=== PATIENT | male | born 1980 | race Caucasian/White ===

== ENCOUNTER 2017-08-27 22:45 | Emergency (ER) | payer SELFPAY ==
--- NOTE | 2017-08-27 23:39 | ERPHSYRPT ---
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 He states he has been worked up for this by his physician in [place] he states he had x-rays of the shoulder and the neck which did not show anything. He states that he continues to have the pain in the shoulder and the pain in his arm. He has no new injuries. He states that he is not on any medications he states that he lost his job before he could be put on medications by his family doctor. Past medical history includes diabetes, hyperlipidemia, high blood pressure, Crohn's disease, bipolar disorder patient has had groin abscesses in the past. Past surgical history includes 3 right knee surgery he's had his right thumb sewn back on he's had 6 surgeries to his groin. Timing/Duration: other (symptoms for 2-3 months) Severity: moderate Modifying Factors: Improves With: nothing Associated Symptoms: No nausea, No vomiting, No abdominal pain, No shortness of breath, No heartburn, No diaphoresis, No cough, No chills, No chest pain, No fever, No headaches, No loss of appetite, No malaise, No rash Allergies/Adverse Reactions: Sulfa (Sulfonamide Antibiotics) Allergy (Intermediate, Verified 02/13/14 15:17) Vomiting Home Medications: Lisinopril/Hydrochlorothiazide [Lisinopril-Hctz 20-25 mg Tab] 1 tab PO DAILY [History] Atorvastatin Calcium [Lipitor] 10 mg PO HS 12/19/13 [History] Bupropion HCl [Bupropion Xl] 1 tab PO DAILY 10/15/14 [History] Clonidine HCl 0.1 mg [Catapres 0.1 MG] 0.5 tab PO UD 10/15/14 [History] Clonidine HCl 0.1 mg [Catapres 0.1 MG] 1 tab PO HS 10/15/14 [History] Dicyclomine HCl 20 mg [Bentyl 20 mg] 20 mg PO Q6HPRN PRN 10/15/14 [History ] Hydrocodone Bit/Acetaminophen [Hydrocodon-Acetaminoph 7.5-325] 1 tab PO Q8HPRN PRN 10/15/14 [History] Hydroxyzine Pamoate [Vistaril] 25 mg PO TID PRN PRN 10/15/14 [History] Lamotrigine 100 mg [lamICTAL 100MG TABLET] 100 mg PO BID 10/15/14 [History ] Metformin HCl [Metformin HCl ER] 750 mg PO BID 10/15/14 [History] Trazodone HCl [Desyrel] 300 mg PO HS 10/15/14 [History] Hx Tetanus, Diphtheria Vaccination/Date Given: No (>7 yrs) Hx Influenza Vaccination/Date Given: Yes Hx Pneumococcal Vaccination/Date Given: Yes (2012) Immunizations Up to Date: Yes - Review of Systems Constitutional: No Fever, No Chills Eyes: No Symptoms Ears, Nose, & Throat: No Symptoms Respiratory: No Cough, No Dyspnea Cardiac: No Chest Pain, No Edema, No Syncope Abdominal/Gastrointestinal: No Abdominal Pain, No Nausea, No Vomiting, No Diarrhea Genitourinary Symptoms: No Dysuria Musculoskeletal: Other (pain in right shoulder radiating down his arm) Skin: No Symptoms, No Rash Neurological: Parasthesia (paresthesias to right fingers) Psychological: No Symptoms Endocrine: No Symptoms All Other Systems: Reviewed and Negative - Past Medical History Pertinent Past Medical History: Yes Neurological History: No Pertinent History ENT History: No Pertinent History Cardiac History: High Cholesterol, Hypertension Respiratory History: No Pertinent History Endocrine Medical History: No Pertinent History, Diabetes Type II Musculoskeletal History: No Pertinent History GI Medical History: Crohns Disease History: No Pertinent History Psycho-Social History: Bipolar, Depression, Anxiety, Panic Disorder, Other Male Reproductive Disorders: No Pertinent History Other Medical History: sleep deprivation. - Past Surgical History Past Surgical History: Yes Neuro Surgical History: No Pertinent History Cardiac: No Pertinent History Respiratory: No Pertinent History Gastrointestinal: No Pertinent History Genitourinary: No Pertinent History Musculoskeletal: Orthopedic Surgery Male Surgical History: Other Other Surgical History: 3 RT KNEE SURGERIES, RT THUMB SEWED BACK ON, 7 SURGERIES TO GROIN FOR I&D. - Social History Smoking Status: Current every day smoker How long have you smoked: 22 Exposure to second hand smoke: No Drug Use: marijuana Patient Lives Alone: Yes - Nursing Vital Signs Nursing Vital Signs: Initial Vital Signs Temperature 98.8 F 08/27/17 23:01 Pulse Rate 84 08/27/17 23:01 Blood Pressure 151/101 08/27/17 23:01 O2 Sat by Pulse Oximetry 98 08/27/17 23:01 Pain Scale Pain Intensity 8 - Physical Exam General Appearance: mild distress Eye Exam: PERRL/EOMI, eyes nml inspection Ears, Nose, Throat Exam: normal ENT inspection, TMs normal, pharynx normal, moist mucous membranes Neck Exam: normal inspection, non-tender, supple, full range of motion Respiratory Exam: normal breath sounds, lungs clear, No respiratory distress Cardiovascular Exam: regular rate/rhythm, normal heart sounds, normal peripheral pulses Gastrointestinal/Abdomen Exam: soft, normal bowel sounds, No tenderness, No mass Back Exam: normal inspection, normal range of motion, No CVA tenderness, No vertebral tenderness Extremity Exam: other (patient complains of pain with movement of his right upper extremity, he has full range of motion to both upper extremities, ggood capillary refill to all fingers sensation intact to all fingersPatient with tenderness with palpation to his right shoulder ) Neurologic Exam: alert, oriented x 3, cooperative, psychology tech II-XII nml as tested, normal mood/affect, nml cerebellar function, nml station & gait, sensation nml, No motor deficits Skin Exam: normal color, warm, dry, No rash Lymphatic Exam: No adenopathy SpO2 Interpretation: normal (98%) SpO2: 98 Oxygen Delivery: Room Air - Course Nursing assessment & vital signs reviewed: No - Progress Progress: improved Progress Note: 08/27/17 23:40 This is a 37-year-old white male with history of chronic shoulder pain for 2 months He states that he has seen a physician down in [place] secondary to this, he states he had x-rays of his neck and shoulder he states that these really did not reveal anything. He states that he was going to be referred by his physician down in [place] to a specialist but he lost his job. He states he continues to have pain in his right shoulder and right arm worse with moving of the arm. On physical examination patient appears to have full range of motion to his right shoulder and arm and elbow and hand and wrist however he does this with pain. Underwriting Technician are intact and symmetrical finger to nose is intact bilaterally however patient appears to be slow at performing finger to nose. Patient's radial and ulnar pulses are intact 2 over 4,. Sensation is intact to his fingers however patient states he feels numbness. I have offered to obtain an x-ray of the patient's shoulder he really doesn't want when he states he just had one along with his x-ray of his neck. I've asked the patient what he would like me to do for him he states he would like to be able to put the arm in a position of comfort. He also states he does not get his insurance until September 07. I have told the patient that I can treat him for 48 hours and he needs to follow -up with her family doctor of his choice I have recommended that he possibly could follow-up with [facility] clinic in [place]. He states that he would prefer to go back down in [place] . I will go ahead and provide the patient with a sling Will give patient one Eros tablet here provide a prescription for 10 Eros tablets he is to place ice on his right shoulder 24-48 hours. And follow-up with his family doctor. He can return for acute distress or for severe symptoms. 08/27/17 23:45 Patient also complains of paresthesia to his right fingers he states he has had this for several months as well he has been seen by his family secondary to this. Patient has full range of motion to his fingers and sensation appears to be intact to his fingers at this time. - Departure Time of Disposition: 23:43 Departure Disposition: Home Clinical Impression: Chronic right shoulder pain, exacerbation of right shoulder pain, paresthesia right fingers Condition: Fair Critical Care Time: No Additional Instructions: Return home. Ice to right shoulder 24-48 hours. Use sling 48-72 hours. Follow-up with your family if symptoms worsen over 24-48 hours or persist longer than 72 hours. Return for acute distress or for severe symptoms. Prescriptions: Hydrocodone/Acetaminophen [Eros 5-325 Tablet] 1 tab PO Q4-6HPRN PRN #10 tablet MDD 4 tablets PRN Reason: pain
[2017-08-27] MEDS ORDERED: NORCO 5/325 MG PO ONE (23:49)
[2017-08-27] MEDS ORDERED: NORCO 5/325 MG ONE (23:53)
[2017-08-28 00:09] VITALS: BP 142/85; PULSE 78; O2SAT 97
== END 2017-08-28 00:13 | disposition home or self-care (01) ==
LOC: ED 22:45
DX: M25.511 Pain in right shoulder (principal); Z79.899 Other long term (current) drug therapy; E11.9 Type 2 diabetes mellitus without complications; R20.2 Paresthesia of skin; G89.29 Other chronic pain
CPT/HCPCS: 99282; 99283; A9270-GY

== ENCOUNTER 2018-09-11 14:10 | Emergency (ER) | payer OTHER ==
[2018-09-11 14:46] VITALS: O2SAT 98
--- NOTE | 2018-09-11 15:19 | ERPHSYRPT ---
- History of Present Illness Time Seen by Provider: 09/11/18 15:13 Source: patient Exam Limitations: no limitations Patient Subjective Stated Complaint: has injections into neck for pinched nerve yesterday by Dr Bedolla at [facility]. states was sent to the hospital for an emergency MRI. states pain in neck is worse than before his injections. states muscles pull and wont release. states stabbing pain in the right arm. denies injury. Triage Nursing Assessment: alert and anxious and irritated. states pain and buring to neck and both arms that is increased in the right arm.. no known injury. had injections yesterday and the pain s increased today. states feels like hands burning. 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 noted left head bent. Physician History: 38-year-old white male with history of diabetes type 1, hypercholesterolemia, high blood pressure, Crohn's disease, bipolar depression, anxiety, panic disorder, sleep deprivation Patient arrives with complaint of pain radiating down to both hands he states he has pain in his neck were ordered on this patient apparently had been seen yesterday by Dr. Bedolla at [facility] pain control center He had received an injection in his neck he apparently had been referred to this hospital to have an MRI obtained which has been done He apparently had been told that he needed to come to the ER for pain control Upon arrival patient seems to be somewhat angry he is able to point with his left hand where his pain is he is able to fabric designer off his blood pressure cuff from his left arm with his right arm he seems to have somewhat of a week and fabric designer on the right however it is questionable whether this is functional he had no problems grabbing his cough and pulling it off/ He is uncooperative with finger to nose he stretches both arms out to the side when asked him to do this. Patient has full range of motion to all other extremities. Past medical history includes diabetes type 1, hypercholesterolemia, high blood pressure, Crohn's disease, bipolar depression, anxiety, panic disorder, sleep deprivation Past surgical history includes orthopedic surgery, 3 surgeries on the right knee , groin surgery right thumb sewn back on. . Timing/Duration: yesterday Severity: moderate Modifying Factors: Improves With: other (received pain injection yesterday and neck) Associated Symptoms: other (shooting pains both hands neck pain), No nausea, No vomiting, No abdominal pain, No shortness of breath, No heartburn, No diaphoresis, No cough, No chills, No chest pain, No fever, No headaches, No loss of appetite, No malaise, No rash, No syncope, No seizure, No weakness Allergies/Adverse Reactions: Sulfa (Sulfonamide Antibiotics) Allergy (Intermediate, Verified 09/11/18 14:50) Vomiting Home Medications: Lisinopril/Hydrochlorothiazide [Lisinopril-Hctz 20-25 mg Tab] 1 tab PO DAILY [History] Atorvastatin Calcium [Lipitor] 10 mg PO HS 12/19/13 [History] Clonidine HCl 0.1 mg [Catapres 0.1 MG] 0.5 tab PO UD 10/15/14 [History] Clonidine HCl 0.1 mg [Catapres 0.1 MG] 1 tab PO HS 10/15/14 [History] Dicyclomine HCl 20 mg [Bentyl 20 mg] 20 mg PO Q6HPRN PRN 10/15/14 [History ] Hydrocodone Bit/Acetaminophen [Hydrocodon-Acetaminoph 7.5-325] 1 tab PO Q8HPRN PRN 10/15/14 [History] Hydroxyzine Pamoate [Vistaril] 25 mg PO TID PRN PRN 10/15/14 [History] Lamotrigine 100 mg [lamICTAL 100MG TABLET] 100 mg PO BID 10/15/14 [History ] Metformin HCl [Metformin HCl ER] 750 mg PO BID 10/15/14 [History] Trazodone HCl [Desyrel] 300 mg PO HS 10/15/14 [History] buPROPion HCl [Bupropion Xl] 1 tab PO DAILY 10/15/14 [History] Hx Tetanus, Diphtheria Vaccination/Date Given: No (>7 yrs) Hx Influenza Vaccination/Date Given: Yes Hx Pneumococcal Vaccination/Date Given: Yes (2012) Immunizations Up to Date: Yes - Review of Systems Constitutional: No Fever, No Chills Eyes: No Symptoms Ears, Nose, & Throat: No Symptoms Respiratory: No Cough, No Dyspnea Cardiac: No Chest Pain, No Edema, No Syncope Abdominal/Gastrointestinal: No Abdominal Pain, No Nausea, No Vomiting, No Diarrhea Genitourinary Symptoms: No Dysuria Musculoskeletal: Neck Pain, Other (shooting pains both hand), No Back Pain Skin: No Symptoms, No Rash Neurological: Other (shooting pains both hands.), No Dizziness, No Focal Weakness, No Gait Changes, No Headache, No Irritability, No Lethargy, No Paralysis, No Parasthesia, No Seizure, No Sensory Changes, No Speech Changes, No Tics, No Tremors, No Vertigo Psychological: No Symptoms Endocrine: No Symptoms All Other Systems: Reviewed and Negative - Past Medical History Pertinent Past Medical History: Yes Neurological History: No Pertinent History ENT History: No Pertinent History Cardiac History: High Cholesterol, Hypertension Respiratory History: No Pertinent History Endocrine Medical History: No Pertinent History, Diabetes Type II Musculoskeletal History: No Pertinent History GI Medical History: Crohns Disease History: No Pertinent History Psycho-Social History: Bipolar, Depression, Anxiety, Panic Disorder, Other Male Reproductive Disorders: No Pertinent History Other Medical History: sleep deprivation. - Past Surgical History Past Surgical History: Yes Neuro Surgical History: No Pertinent History Cardiac: No Pertinent History Respiratory: No Pertinent History Gastrointestinal: No Pertinent History Genitourinary: No Pertinent History Musculoskeletal: Orthopedic Surgery Male Surgical History: Other Other Surgical History: 3 RT KNEE SURGERIES, RT THUMB SEWED BACK ON, 7 SURGERIES TO GROIN FOR I&D. - Social History Smoking Status: Current every day smoker How long have you smoked: 22 Exposure to second hand smoke: No Drug Use: marijuana Patient Lives Alone: No - Nursing Vital Signs Nursing Vital Signs: Initial Vital Signs Temperature 98 F 09/11/18 14:35 Pulse Rate 80 09/11/18 14:35 Respiratory Rate 18 09/11/18 14:35 Blood Pressure 109/70 09/11/18 14:35 O2 Sat by Pulse Oximetry 98 09/11/18 14:35 Pain Scale Pain Intensity 10 - Physical Exam General Appearance: mild distress, alert, other (well-developed well-nourished white male appears to be very angry) Eye Exam: PERRL/EOMI, eyes nml inspection Ears, Nose, Throat Exam: normal ENT inspection, TMs normal, pharynx normal, moist mucous membranes Neck Exam: normal inspection, non-tender, supple, full range of motion Respiratory Exam: normal breath sounds, lungs clear, No respiratory distress Cardiovascular Exam: regular rate/rhythm, normal heart sounds, normal peripheral pulses, capillary refill <2 sec Gastrointestinal/Abdomen Exam: soft, normal bowel sounds, No tenderness, No mass Back Exam: normal inspection, normal range of motion, No CVA tenderness, No vertebral tenderness Extremity Exam: normal inspection, normal range of motion, pelvis stable Neurologic Exam: alert, oriented x 3, cooperative, vacuum cleaner assembler II-XII nml as tested, normal mood/affect, nml cerebellar function, nml station & gait, sensation nml, No motor deficits Skin Exam: normal color, warm, dry, No rash SpO2 Interpretation: normal (98%) SpO2: 98 - Course Nursing assessment & vital signs reviewed: Yes - Progress Progress: improved (all) Progress Note: 09/11/18 15:19 38-year-old white male with history of her neck pain apparently had received an injection in his neck from [facility] yesterday. He apparently stated that he increasing pain today in his neck radiating to both hands. He had an MRI done here in this hospital today. MRI of the neck is remarkable for minimal/mild multilevel degenerative disc disease detailed level by level. Negative disc herniation or spinal she canal stenosis. Negative contrast exam. Patient is quite angry on interview. He is somewhat uncooperative. He appears to have full range of motion to all extremities HEENT within normal limits neck pain he states is tender but he has full range of motion. Extremities full range of motion patient is uncooperative with neurologic exam but he is able to fabric designer off his blood pressure cuff from his left forearm with his right hand. He is able to pinpoint where his neck is bothering him was his left hand. He has full range of motion he is able to use his cell phone. He has full range of motion to all extremities. Ears TMs finley intact bilaterally. Nose is clear. Throat is clear. Neck is supple. Lungs are clear. Heart regular rate and rhythm without murmur. Abdomen soft nontender nondistended positive bowel sounds. Extremities full range of motion pulse equal symmetrical 2 over 4. Neuro cranial nerves II through XII are intact DTRs symmetrical 2 over 4 Fenton Coma Scale 15 patient does exhibit somewhat weak fabric designer on the right with a asking him to squeeze my fingers however he is able to grasp a blood pressure cuff and repeat off with the same hand. Impression neck pain bilateral hand pain. History of recent injections secondary to pain at pain control center. Plan Accu-Chek has been obtained from this patient is noted to be to 40. Will go ahead and discuss with the patient's pain control physician. 09/11/18 15:48 I discussed the patient's case with nurse eda Escalona at [facility]. They do not feel that patient is having acute MRI changes. Patient is angry Conry talking to him he states he's been dealing with this for a year and he expected to have his treatment having him feel much better. In discussion with nurse practitioner Pola she feels that the medications are anoverlying his nurse and this will go away in a day or 2. Patient does have a normal neurologic exam at this time. Will go ahead and give patient Toradol 60 mg IM. Will write for a few C[place]on tablets inspect has been queried patient is not taking these for a while and they do not show up on inspect. Nurse practitioner Pola recommends that the patient follow-up with Dr. Palacio the patient's neurologist who had sent the patient to the [facility]. - Departure Departure Disposition: Home Clinical Impression: Neck pain, Bilateral hand pain, Chronic pain syndrome Condition: Fair Critical Care Time: No Referrals: RADHA DOSHI MD [Primary Care Provider] - Instructions: Chronic Pain (DC) Additional Instructions: Return home. Follow-up with Dr. Palacio your neurologist. Follow-up with [facility]. Cresson as prescribed. Return for acute distress or for severe symptoms. Prescriptions: Hydrocodone/APAP 5-325 Tab^^^ [C[place]on 5-325 Tablet^^^] 1 tab PO Q6HPRN PRN #10 tablet MDD 6 PRN Reason: neck and hand pain
[2018-09-11 15:51] VITALS: BP 125/72; PULSE 78
[2018-09-11] MEDS ORDERED: TORAdol 30 mg Injection IM ONE (15:59)
[2018-09-11] MEDS ORDERED: TORAdol 30 mg Injection ONE (16:02)
== END 2018-09-11 16:19 | disposition home or self-care (01) ==
LOC: ED 14:10
DX: M54.2 Cervicalgia (principal); M79.642 Pain in left hand; M79.641 Pain in right hand; G89.4 Chronic pain syndrome; I10 Essential (primary) hypertension; E11.9 Type 2 diabetes mellitus without complications; K50.90 Crohn's disease, unspecified, without complications; E78.00 Pure hypercholesterolemia, unspecified; F41.9 Anxiety disorder, unspecified; F31.9 Bipolar disorder, unspecified; Z72.820 Sleep deprivation; E10.9 Type 1 diabetes mellitus without complications; Z79.4 Long term (current) use of insulin; Z79.899 Other long term (current) drug therapy
CPT/HCPCS: 82962; 96372; 99284; J1885

== ENCOUNTER 2021-12-28 06:35 | Emergency (ER) | payer OTHER ==
[2021-12-28] MEDS ORDERED: Zofran 4 MG/2 ML VIAL IV ONE (07:00)
[2021-12-28] MEDS ORDERED: Ativan 2 MG/1 ML VIAL IV ONE (07:00)
[2021-12-28] MEDS ORDERED: Sodium Chloride 0.9% 1000 ML 1,000 ML IV STA (07:00)
--- NOTE | 2021-12-28 07:11 | ERPHSYRPT ---
- History of Present Illness Source: patient, EMS, police Exam Limitations: clinical condition Patient Subjective Stated Complaint: per ems, pt had 3 seizures this morning. pt responds to painful stimuli upon arrival. Triage Nursing Assessment: pt responds to painful stimluli upon arrival to er. at this time, pt responding to questions and answers approp. pt follows comm ands. respirations nonlabored with lungs cta. pupils equal and reactive bilat upper and lower ext strength equal and wnl. Timing/Duration: today, sudden, improved Severity: moderate Baseline/Normal Cognition: alert oriented x 3 Current Cognition: alert oriented x 3 Associated Symptoms: seizures Hx Tetanus, Diphtheria Vaccination/Date Given: Yes Hx Influenza Vaccination/Date Given: No Hx Pneumococcal Vaccination/Date Given: No Immunizations Up to Date: Yes <DAISY MARIA - Last Filed: 12/28/21 07:08> <TERESA ROBLES - Last Filed: 12/28/21 08:32> - History of Present Illness Time Seen by Provider: 12/28/21 06:45 Physician History: 41 years old male with history of seizure disorder, possible drug use currently in the senior care is brought in the ER after he had a 3 [id number] seizure-like activities prior to arrival. Patient is sleepy on presentation but arousable to verbal commands and answers questions appropriately. Patient denies numbness tingling or focal weakness but complaining of some headache. No chest pain palpitations or shortness of breath. Does take Lamictal which she has last night. Not a very good historian and history is limited. (DAISY MARIA) Allergies/Adverse Reactions: Sulfa (Sulfonamide Antibiotics) Adverse Reaction (Intermediate, Verified 12/28/21 06:59) Vomiting Home Medications: Lisinopril/Hydrochlorothiazide [Lisinopril-Hctz 20-25 mg Tab] 1 tab PO DAILY 09/27/13 [History] Atorvastatin Calcium [Lipitor] 20 mg PO HS 12/19/13 [History] Lamotrigine 100 mg [lamICTAL 100MG TABLET] 150 mg PO BID 10/15/14 [History] Metformin HCl [Metformin HCl ER] 500 mg PO BID 10/15/14 [History] Trazodone HCl [Desyrel] 150 mg PO HS 10/15/14 [History] Gabapentin [Neurontin ] 300 mg PO TID 12/28/21 [History] Travel Risk - International Travel Have you traveled outside of the country in past 3 weeks: No - Coronavirus Screening Are you exhibiting any of the following symptoms?: No Close contact with a COVID-19 positive Pt in past 14-21 Days: No - Vaccine Status Have you recieved a Covid-19 vaccination: Yes Coupon Clerk: Unknown - Vaccination Dates Dates if Unknown: 2020 <DAISY MARIA - Last Filed: 12/28/21 07:08> - Review of Systems All Other Systems: Unable due to condition <DAISY MARIA - Last Filed: 12/28/21 07:08> - Past Medical History Pertinent Past Medical History: Yes Neurological History: Seizures ENT History: No Pertinent History Cardiac History: High Cholesterol, Hypertension Respiratory History: No Pertinent History Endocrine Medical History: No Pertinent History, Diabetes Type II Musculoskeletal History: No Pertinent History GI Medical History: Crohns Disease History: No Pertinent History Psycho-Social History: Bipolar, Depression, Anxiety, Panic Disorder, Other Male Reproductive Disorders: No Pertinent History Other Medical History: . - Past Surgical History Past Surgical History: Yes Neuro Surgical History: No Pertinent History Cardiac: No Pertinent History Respiratory: No Pertinent History Gastrointestinal: No Pertinent History Genitourinary: No Pertinent History Musculoskeletal: Orthopedic Surgery Male Surgical History: Other Other Surgical History: 3 RT KNEE SURGERIES, RT THUMB SEWED BACK ON, 7 SURGERIES TO GROIN FOR I&D. - Social History Smoking Status: Current every day smoker How long have you smoked: 22 Exposure to second hand smoke: No Drug Use: marijuana, methamphetamines Patient Lives Alone: No <DAISY MARIA - Last Filed: 12/28/21 07:08> - Rodrigo Coma Scale Best Eye Response (Rodrigo): (3) open to voice Best Verbal Response (Rodrigo): (5) oriented Best Motor Response (Rodrigo): (6) obeys commands [place] Total: 14 - Physical Exam General Appearance: no apparent distress Eye Exam: bilateral eye: normal inspection, PERRL, EOMI Ears, Nose, Throat Exam: normal ENT inspection, TMs normal, pharynx normal, moist mucous membranes Neck Exam: normal inspection, non-tender, supple, full range of motion Respiratory: normal breath sounds, lungs clear Cardiovascular: regular rate/rhythm, normal heart sounds Gastrointestinal: soft, normal bowel sounds, No tenderness Back Exam: normal inspection, normal range of motion Extremity Exam: normal inspection, normal range of motion Mental Status: oriented x 3, cooperative baker pie Exam: normal hearing, normal speech, PERRL Motor/Sensory: no motor deficit, no sensory deficit, negative Babinski's sign DTR: bicep (R): 2+, bicep (L): 2+, knee (R): 2+, knee (L): 2+ Skin Exam: normal color SpO2 Interpretation: normal SpO2: 95 O2 Delivery: Room Air <DAISY MARIA - Last Filed: 12/28/21 07:08> - Nursing Vital Signs Nursing Vital Signs: Initial Vital Signs Temperature 98.0 F 12/28/21 06:43 Pulse Rate 94 H 12/28/21 06:43 Respiratory Rate 16 12/28/21 06:43 Blood Pressure 155/105 12/28/21 06:43 O2 Sat by Pulse Oximetry 95 12/28/21 06:43 Pain Scale Pain Intensity 0 Ordered Tests: Active Orders 24 hr Category Date Time Status Imaging Technologist STAT Care 12/28/21 07:01 Active EKG-ER Only STAT Care 12/28/21 07:00 Active IV Insertion STAT Care 12/28/21 07:00 Active NPO (ED) STAT Care 12/28/21 07:00 Active HEAD WITHOUT CONTRAST [CT] Stat Exams 12/28/21 07:19 Taken CBC W DIFF Stat Lab 12/28/21 07:18 Completed CMP Stat Lab 12/28/21 07:18 Completed Lactic Acid Stat Lab 12/28/21 06:53 Completed UA W/RFX CULTURE Stat Lab 12/28/21 07:05 Completed Urine Triage Profile Stat Lab 12/28/21 07:04 Completed Medication Summary Discontinued Medications Generic Name Dose Route Start Last Admin Trade Name Freq PRN Reason Stop Dose Admin Sodium Chloride 1,000 mls @ 999 mls/hr 12/28/21 07:00 12/28/21 07:18 Sodium Chloride 0.9% 1000 Ml IV 12/28/21 08:00 999 mls/hr .Q1H1M STA Administration Sodium Chloride Confirm 12/28/21 07:17 Sodium Chloride 0.9% 1000 Ml Administered 12/28/21 07:18 Dose 1,000 mls @ ud .ROUTE .STK-MED ONE Lorazepam 1 mg 12/28/21 07:00 12/28/21 07:18 Lorazepam 2 Mg/1 Ml 2 Mg Vial IV 12/28/21 07:01 1 mg STAT ONE Administration Lorazepam Confirm 12/28/21 07:17 Lorazepam 2 Mg/1 Ml 2 Mg Vial Administered 12/28/21 07:18 Dose 2 mg .ROUTE .STK-MED ONE Ondansetron HCl 4 mg 12/28/21 07:00 12/28/21 07:18 Ondansetron Hcl 4 Mg/2 Ml Vial IV 12/28/21 07:01 4 mg STAT ONE Administration Ondansetron HCl Confirm 12/28/21 07:16 Ondansetron Hcl 4 Mg/2 Ml Vial Administered 12/28/21 07:17 Dose 4 mg .ROUTE .STK-MED ONE Lab/Rad Data: Laboratory Result Diagrams 12/28/21 07:18 12/28/21 07:18 Laboratory Results 12/28/21 12/28/21 12/28/21 Range/Units 07:18 07:18 07:05 WBC 8.2 (4.0-10.5) x10^3/uL RBC 6.36 H (4.1-5.6) x10^6/uL Hgb 17.0 (12.5-18.0) g/dL Hct 53.1 H (42-50) % MCV 83.5 (78-100) fL MCH 26.7 (26-32) pg MCHC 32.0 (32-36) g/dL RDW 14.9 H (11.5-14.0) % Plt Count 246 (150-450) x10^3/uL MPV 10.5 (7.5-11.0) fL Gran % 58.6 (36.0-66.0) % Immature Gran % (Auto) 0.4 (0.00-0.4) % Nucleat RBC Rel Count 0.0 (0.00-0.1) % Eos # (Auto) 0.14 (0-0.5) x10^3/uL Immature Gran # (Auto) 0.03 (0.00-0.03) x10^3u/L Absolute Lymphs (auto) 2.32 (1.0-4.6) x10^3/uL Absolute Monos (auto) 0.81 (0.0-1.3) x10^3/uL Absolute Nucleated RBC 0.00 (0.00-0.01) x10^3u/L Lymphocytes % 28.4 (24.0-44.0) % Monocytes % 9.9 (0.0-12.0) % Eosinophils % 1.7 (0.00-5.0) % Basophils % 1.0 (0.0-0.4) % Absolute Granulocytes 4.80 (1.4-6.9) x10^3/uL Basophils # 0.08 (0-0.4) x10^3/uL Sodium 137 (137-145) mmol/L Potassium 4.0 (3.5-5.1) mmol/L Chloride 103 (98-107) mmol/L Carbon Dioxide 24 (22-30) mmol/L Anion Gap 14.0 (5-15) MEQ/L BUN 16 (9-20) mg/dL Creatinine 0.88 (0.66-1.25) mg/dL Estimated GFR > 60.0 ML/MIN Glucose 99 (74-106) mg/dL Lactic Acid (0.4-2.0) Calcium 9.4 (8.4-10.2) mg/dL Total Bilirubin 0.80 (0.2-1.3) mg/dL AST 29 (17-59) U/L ALT 26 (0-50) U/L Alkaline Phosphatase 78 (38-126) U/L Serum Total Protein 6.9 (6.3-8.2) g/dL Albumin 3.9 (3.5-5.0) g/dL Urinalys Dipstick Clnc MAIN LAB Urine Color YELLOW (YELLOW) Urine Appearance CLEAR (CLEAR) Urine pH 6.0 (5-6) Ur Specific [place] >=1.030 (1.005-1.025) POC Urine Protein Conf 30 (Negative) Urine Ketones NEGATIVE (NEGATIVE) Urine Nitrite NEGATIVE (NEGATIVE) Urine Bilirubin NEGATIVE (NEGATIVE) Urine Urobilinogen 1 (0-1) mg/dL Urine Leukocytes NEGATIVE (NEGATIVE) Urine WBC (Auto) NONE (0-5) /HPF Urine RBC (Auto) NONE (0-2) /HPF U Epithel Cells (Auto) NONE (FEW) /HPF Urine Bacteria (Auto) NONE (NEGATIVE) /HPF Urine RBC NEGATIVE (0-5) Reginald/ul Urine Mucus (Auto) SLIGHT (NEGATIVE) /HPF Ur Culture Indicated? NO Urine Glucose NEGATIVE (NEGATIVE) mg/dL Urine Opiates Level (NEGATIVE) Ur Methadone (NEGATIVE) Urine Barbiturates (NEGATIVE) Ur Phencyclidine (PCP) (NEGATIVE) Urine Amphetamine (NEGATIVE) U Benzodiazepine Level (NEGATIVE) Urine Cocaine (NEGATIVE) Urine Marijuana (THC) (NEGATIVE) 12/28/21 12/28/21 Range/Units 07:04 06:53 WBC (4.0-10.5) x10^3/uL RBC (4.1-5.6) x10^6/uL Hgb (12.5-18.0) g/dL Hct (42-50) % MCV (78-100) fL MCH (26-32) pg MCHC (32-36) g/dL RDW (11.5-14.0) % Plt Count (150-450) x10^3/uL MPV (7.5-11.0) fL Gran % (36.0-66.0) % Immature Gran % (Auto) (0.00-0.4) % Nucleat RBC Rel Count (0.00-0.1) % Eos # (Auto) (0-0.5) x10^3/uL Immature Gran # (Auto) (0.00-0.03) x10^3u/L Absolute Lymphs (auto) (1.0-4.6) x10^3/uL Absolute Monos (auto) (0.0-1.3) x10^3/uL Absolute Nucleated RBC (0.00-0.01) x10^3u/L Lymphocytes % (24.0-44.0) % Monocytes % (0.0-12.0) % Eosinophils % (0.00-5.0) % Basophils % (0.0-0.4) % Absolute Granulocytes (1.4-6.9) x10^3/uL Basophils # (0-0.4) x10^3/uL Sodium (137-145) mmol/L Potassium (3.5-5.1) mmol/L Chloride (98-107) mmol/L Carbon Dioxide (22-30) mmol/L Anion Gap (5-15) MEQ/L BUN (9-20) mg/dL Creatinine (0.66-1.25) mg/dL Estimated GFR ML/MIN Glucose (74-106) mg/dL Lactic Acid 1.4 (0.4-2.0) Calcium (8.4-10.2) mg/dL Total Bilirubin (0.2-1.3) mg/dL AST (17-59) U/L ALT (0-50) U/L Alkaline Phosphatase (38-126) U/L Serum Total Protein (6.3-8.2) g/dL Albumin (3.5-5.0) g/dL Urinalys Dipstick Clnc Urine Color (YELLOW) Urine Appearance (CLEAR) Urine pH (5-6) Ur Specific [place] (1.005-1.025) POC Urine Protein Conf (Negative) Urine Ketones (NEGATIVE) Urine Nitrite (NEGATIVE) Urine Bilirubin (NEGATIVE) Urine Urobilinogen (0-1) mg/dL Urine Leukocytes (NEGATIVE) Urine WBC (Auto) (0-5) /HPF Urine RBC (Auto) (0-2) /HPF U Epithel Cells (Auto) (FEW) /HPF Urine Bacteria (Auto) (NEGATIVE) /HPF Urine RBC (0-5) Reginald/ul Urine Mucus (Auto) (NEGATIVE) /HPF Ur Culture Indicated? Urine Glucose (NEGATIVE) mg/dL Urine Opiates Level NEGATIVE (NEGATIVE) Ur Methadone NEGATIVE (NEGATIVE) Urine Barbiturates NEGATIVE (NEGATIVE) Ur Phencyclidine (PCP) NEGATIVE (NEGATIVE) Urine Amphetamine POSITIVE (NEGATIVE) U Benzodiazepine Level NEGATIVE (NEGATIVE) Urine Cocaine NEGATIVE (NEGATIVE) Urine Marijuana (THC) POSITIVE (NEGATIVE) - Progress Progress: improved, re-examined Counseled pt/family regarding: lab results, diagnosis, need for follow-up, rad results <TERESA ROBLES - Last Filed: 12/28/21 08:32> <DAISY MARIA - Last Filed: 12/28/21 07:08> - Departure Critical Care Time: No <TERESA ROBLES - Last Filed: 12/28/21 08:32> - Departure Clinical Impression: Breakthrough seizure, Amphetamine abuse, Marijuana use Condition: Stable Referrals: RADHA DOSHI MD [Primary Care Provider] - Follow up/PCP as directed Additional Instructions: Continue taking your medication as prescribed. Follow-up with your prescribing physician and neurologist for further evaluation and management.
[2021-12-28] MEDS ORDERED: Zofran 4 MG/2 ML VIAL ONE (07:16)
[2021-12-28] MEDS ORDERED: Sodium Chloride 0.9% 1000 ML 1,000 ML ONE (07:17)
[2021-12-28] MEDS ORDERED: Ativan 2 MG/1 ML VIAL ONE (07:17)
[2021-12-28 07:22] LABS: Basophil (Absolute #) 0.08 x10^3/uL (0-0.4); Eosinophil % 1.7 % (0.00-5.0); Eosinophil (Absolute #) 0.14 x10^3/uL (0-0.5); Hematocrit 53.1 % (42-50); Lymphocyte (Absolute #) 2.32 x10^3/uL (1.0-4.6); Lymphocytes % 28.4 % (24.0-44.0); Mean Cell Volume 83.5 fL (78-100); Mean Corpuscular Hemoglobin 26.7 pg (26-32); Mean Platelet Volume 10.5 fL (7.5-11.0); Monocyte (Absolute #) 0.81 x10^3/uL (0.0-1.3); Monocytes % 9.9 % (0.0-12.0); Neutrophil % 58.6 % (36.0-66.0); Platelet Count 246 x10^3/uL (150-450); Red Blood Count 6.36 x10^6/uL (4.1-5.6); Red Cell Distribution Width 14.9 % (11.5-14.0); White Blood Count 8.2 x10^3/uL (4.0-10.5)
[2021-12-28 07:26] LABS: Mucus SLIGHT /HPF (NEGATIVE)
[2021-12-28 07:28] LABS: Appearance CLEAR (CLEAR); Bilirubin NEGATIVE (NEGATIVE); Glucose NEGATIVE (NEGATIVE); Ketones NEGATIVE (NEGATIVE); Protein,Urine Dip 30 (Negative); RBC NEGATIVE Ery/ul (0-5); Specific Gravity >=1.030 (1.005-1.025); Urobilinogen 1 mg/dL (0-1)
[2021-12-28 07:29] LABS: Dipstick done @ ? MAIN LAB; Nitrite NEGATIVE (NEGATIVE)
[2021-12-28 07:31] LABS: Urine Cultured Indicated? NO
[2021-12-28 07:41] VITALS: PULSE 89; O2SAT 99
[2021-12-28 07:41] LABS: Barbiturate,Urine NEGATIVE (NEGATIVE); Benzodiazepine,Urine NEGATIVE (NEGATIVE); Cocaine,Urine NEGATIVE (NEGATIVE); Methadone,Urine NEGATIVE (NEGATIVE); Opiate,Urine NEGATIVE (NEGATIVE); PCP,Urine NEGATIVE (NEGATIVE); THC,Urine POSITIVE (NEGATIVE)
[2021-12-28 07:46] LABS: ALBUMIN 3.9 g/dL (3.5-5.0); ALKALINE PHOSPHATASE 78 U/L (38-126); BLOOD UREA NITROGEN 16 mg/dL (9-20); CHLORIDE 103 mmol/L (98-107); Calcium 9.4 mg/dL (8.4-10.2); Carbon Dioxide 24 mmol/L (22-30); Creatinine 1 0.88 mg/dL (0.66-1.25); EST GLOMERULAR FILTRATION RATE > 60.0 ML/MIN; Glucose 99 mg/dL (74-106); SGOT/AST 29 U/L (17-59); SGPT/ALT 26 U/L (0-50); SODIUM 137 mmol/L (137-145); Total Protein 6.9 g/dL (6.3-8.2)
[2021-12-28 07:58] LABS: Amphetamine,Urine POSITIVE (NEGATIVE)
[2021-12-28 08:04] VITALS: BP 162/116
--- NOTE | 2021-12-28 08:45 | XRAY ---
Indication: Seizure. Status post fall with head injury. Multiple contiguous axial images obtained through the head without contrast. Comparison: None Normal appearing brain parenchyma, ventricles, and bony calvarium. Paranasal sinuses and mastoid air cells are clear. Impression: Normal CT head without contrast exam.
== END 2021-12-28 08:48 | disposition home or self-care (01) ==
LOC: ED 06:35
DX: G40.909 Epilepsy, unspecified, not intractable, without status epilepticus (principal); F15.10 Other stimulant abuse, uncomplicated; F12.90 Cannabis use, unspecified, uncomplicated; R40.0 Somnolence; R51.9 Headache, unspecified; E78.5 Hyperlipidemia, unspecified; I10 Essential (primary) hypertension; E11.9 Type 2 diabetes mellitus without complications; Z72.0 Tobacco use; Z79.84 Long term (current) use of oral hypoglycemic drugs; Z79.899 Other long term (current) drug therapy
CPT/HCPCS: 36000; 36415; 70450; 80053; 80307; 81015; 83605; 85025; 93005; 93041; 96360; 96374; 96375; 99284; J2060; J2405

== ENCOUNTER 2022-06-25 17:36 | Emergency (ER) | payer OTHER ==
--- NOTE | 2022-06-25 17:49 | ERPHSYRPT ---
- History of Present Illness Time Seen by Provider: 06/25/22 17:48 Source: patient Exam Limitations: no limitations Physician History: This is a 42-year-old white male patient of Dr. Doshi and presents with 1-1/2-month history of intermittent swelling of his right lower extremity. In the last several days he has noticed warmth, redness and increased pain with ambulation. He has not had shortness of breath or cough. He has never had anything like this before. He does not recall any traumatic injury to the right lower extremity. Patient has a history of hypertension, hyperlipidemia, diabetes, panic disorder and Crohn's disease. He has not measured a fever. Occurred: other (Present intermittently and worsening in the last month and a half) Quality: intermittent, stabbing, tightness Severity of Pain-Max: mild (To moderate) Severity of Pain-Current: mild (To moderate) Lower Extremities Pain: leg: right (Below the knee) Modifying Factors: Improves With: movement Associated Symptoms: other (Hurts to bear weight) Allergies/Adverse Reactions: Sulfa (Sulfonamide Antibiotics) Adverse Reaction (Intermediate, Verified 06/25/22 17:51) Vomiting Home Medications: Lisinopril/Hydrochlorothiazide [Lisinopril-Hctz 20-25 mg Tab] 1 tab PO DAILY 09/27/13 [History] Atorvastatin Calcium [Lipitor] 20 mg PO HS 12/19/13 [History] Lamotrigine 100 mg [lamICTAL 100MG TABLET] 150 mg PO BID 10/15/14 [History] Metformin HCl [Metformin HCl ER] 500 mg PO BID 10/15/14 [History] Trazodone HCl [Desyrel] 150 mg PO HS 10/15/14 [History] Gabapentin [Neurontin ] 300 mg PO TID 12/28/21 [History] Hx Tetanus, Diphtheria Vaccination/Date Given: Yes Hx Influenza Vaccination/Date Given: No Hx Pneumococcal Vaccination/Date Given: No Travel Risk - International Travel Have you traveled outside of the country in past 3 weeks: No - Coronavirus Screening Are you exhibiting any of the following symptoms?: No Close contact with a COVID-19 positive Pt in past 14-21 Days: No - Vaccine Status Have you recieved a Covid-19 vaccination: Yes Health And Wellness Coordinator: Unknown - Vaccination Dates Dates if Unknown: 2020 - Review of Systems Constitutional: No Symptoms Eyes: No Symptoms Ears, Nose, & Throat: No Symptoms Respiratory: No Symptoms Cardiac: No Symptoms Abdominal/Gastrointestinal: No Symptoms Genitourinary Symptoms: No Symptoms Musculoskeletal: No Symptoms Skin: Cellulitis (Right lower extremity below the knee) Neurological: No Symptoms Psychological: No Symptoms Endocrine: No Symptoms Hematologic/Lymphatic: No Symptoms Immunological/Allergic: No Symptoms All Other Systems: Reviewed and Negative - Past Medical History Pertinent Past Medical History: Yes Neurological History: Seizures ENT History: No Pertinent History Cardiac History: High Cholesterol, Hypertension Respiratory History: No Pertinent History Endocrine Medical History: No Pertinent History, Diabetes Type II Musculoskeletal History: No Pertinent History GI Medical History: Crohns Disease History: No Pertinent History Psycho-Social History: Bipolar, Depression, Anxiety, Panic Disorder, Other Male Reproductive Disorders: No Pertinent History Other Medical History: . - Past Surgical History Past Surgical History: Yes Neuro Surgical History: No Pertinent History Cardiac: No Pertinent History Respiratory: No Pertinent History Gastrointestinal: No Pertinent History Genitourinary: No Pertinent History Musculoskeletal: Orthopedic Surgery Male Surgical History: Other Other Surgical History: 3 RT KNEE SURGERIES, RT THUMB SEWED BACK ON, 7 SURGERIES TO GROIN FOR I&D. - Social History Smoking Status: Current every day smoker How long have you smoked: 22 Exposure to second hand smoke: No Drug Use: marijuana, methamphetamines Patient Lives Alone: No - Nursing Vital Signs Nursing Vital Signs: Initial Vital Signs Temperature 98.1 F 06/25/22 17:53 Pulse Rate 95 H 06/25/22 17:53 Respiratory Rate 18 06/25/22 17:53 Blood Pressure 160/108 06/25/22 17:53 O2 Sat by Pulse Oximetry 100 06/25/22 17:53 Pain Scale Pain Intensity 6 - Physical Exam General Appearance: no apparent distress, alert, anxiety Eyes, Ears, Nose, Throat Exam: normal ENT inspection, moist mucous membranes Neck Exam: normal inspection, non-tender, supple, full range of motion Cardiovascular/Respiratory Exam: chest non-tender, no respiratory distress Gastrointestinal/Abdominal Exam: non-tender Back Exam: normal inspection, normal range of motion, No CVA tenderness, No vertebral tenderness Hips Exam: bilateral: non-tender, normal inspection, normal range of motion, no evidence of injury Legs Exam: right leg: pain, soft tissue tenderness, swelling, other (Cellulitis below the knee), left leg: non-tender, normal inspection, bilateral leg: normal range of motion, no evidence of injury Knees Exam: bilateral knee: non-tender, normal inspection, normal range of motion, no evidence of injury Ankle Exam: right ankle: pain, soft tissue tenderness, swelling, other, bilateral ankle: normal range of motion, no evidence of injury Foot Exam: right foot: pain, soft tissue tenderness, swelling, left foot: non- tender, normal inspection, bilateral foot: normal range of motion, no evidence of injury Neuro/Tendon Exam: normal sensation, normal motor functions, normal tendon functions Mental Status Exam: alert, oriented x 3, cooperative Skin Exam: other (Cellulitis and swelling below the knee right lower extremity) SpO2 Interpretation: normal O2 Delivery: Room Air Ordered Tests: Active Orders 24 hr Category Date Time Status IV Insertion STAT Care 06/25/22 18:34 Active BLOOD CULTURE Stat Lab 06/25/22 18:55 Received CBC W DIFF Stat Lab 06/25/22 18:55 Completed CMP Stat Lab 06/25/22 18:55 Completed D-DIMER QUANTITATIVE Stat Lab 06/25/22 18:55 Completed Medication Summary Generic Name Dose Route Start Last Admin Trade Name Freq PRN Reason Stop Dose Admin Ceftriaxone Sodium/Dextrose 1 g in 50 mls @ 100 mls/hr 06/25/22 20:20 Rocephin 1 Gm-D5w 50 Ml Bag IV 06/25/22 20:49 STAT STA Lab/Rad Data: Laboratory Result Diagrams 06/25/22 18:55 06/25/22 18:55 Laboratory Results 06/25/22 06/25/22 06/25/22 Range/Units 18:55 18:55 18:55 WBC 8.9 (4.0-10.5) x10^3/uL RBC 5.63 H (4.1-5.6) x10^6/uL Hgb 14.9 (12.5-18.0) g/dL Hct 46.4 (42-50) % MCV 82.4 (78-100) fL MCH 26.5 (26-32) pg MCHC 32.1 (32-36) g/dL RDW 14.8 H (11.5-14.0) % Plt Count 263 (150-450) x10^3/uL MPV 10.2 (7.5-11.0) fL Gran % 59.8 (36.0-66.0) % Immature Gran % (Auto) 0.3 (0.00-0.4) % Nucleat RBC Rel Count 0.0 (0.00-0.1) % Eos # (Auto) 0.14 (0-0.5) x10^3/uL Immature Gran # (Auto) 0.03 (0.00-0.03) x10^3u/L Absolute Lymphs (auto) 2.47 (1.0-4.6) x10^3/uL Absolute Monos (auto) 0.88 (0.0-1.3) x10^3/uL Absolute Nucleated RBC 0.00 (0.00-0.01) x10^3u/L Lymphocytes % 27.8 (24.0-44.0) % Monocytes % 9.9 (0.0-12.0) % Eosinophils % 1.6 (0.00-5.0) % Basophils % 0.6 (0.0-0.4) % Absolute Granulocytes 5.30 (1.4-6.9) x10^3/uL Basophils # 0.05 (0-0.4) x10^3/uL D-Dimer 0.41 (0.0-0.50) mg/L Sodium 136 L (137-145) mmol/L Potassium 4.2 (3.5-5.1) mmol/L Chloride 103 (98-107) mmol/L Carbon Dioxide 29 (22-30) mmol/L Anion Gap 8.7 (5-15) MEQ/L BUN 11 (9-20) mg/dL Creatinine 0.71 (0.66-1.25) mg/dL Estimated GFR > 60.0 ML/MIN Glucose 93 (74-106) mg/dL Calcium 9.1 (8.4-10.2) mg/dL Total Bilirubin 0.80 (0.2-1.3) mg/dL AST 23 (17-59) U/L ALT 27 (0-50) U/L Alkaline Phosphatase 85 (38-126) U/L Serum Total Protein 7.5 (6.3-8.2) g/dL Albumin 4.1 (3.5-5.0) g/dL - Progress Progress: unchanged - Departure Departure Disposition: Home Clinical Impression: Cellulitis of right leg Condition: Stable Critical Care Time: No Referrals: RADHA DOSHI MD [Primary Care Provider] - Follow up/PCP as directed Additional Instructions: Keep right lower extremity elevated above the level of the heart as discussed. Take your antibiotics as prescribed. Use Tylenol and ibuprofen for fever and pain control. Follow-up with your primary care provider tomorrow by phone to make arrangements for an appointment for further evaluation and management Prescriptions: Levofloxacin [Levaquin 500 MG Tablet] 500 mg PO DAILY #7 tablet
[2022-06-25 18:05] VITALS: O2SAT 100
[2022-06-25 19:19] LABS: Basophil (Absolute #) 0.05 x10^3/uL (0-0.4); Eosinophil % 1.6 % (0.00-5.0); Eosinophil (Absolute #) 0.14 x10^3/uL (0-0.5); Hematocrit 46.4 % (42-50); Hemoglobin 14.9 g/dL (12.5-18.0); Lymphocyte (Absolute #) 2.47 x10^3/uL (1.0-4.6); Lymphocytes % 27.8 % (24.0-44.0); Mean Cell Volume 82.4 fL (78-100); Mean Corpuscular Hemoglobin 26.5 pg (26-32); Mean Corpuscular Hgb Concent. 32.1 g/dL (32-36); Mean Platelet Volume 10.2 fL (7.5-11.0); Monocyte (Absolute #) 0.88 x10^3/uL (0.0-1.3); Monocytes % 9.9 % (0.0-12.0); Neutrophil % 59.8 % (36.0-66.0); Platelet Count 263 x10^3/uL (150-450); Red Blood Count 5.63 x10^6/uL (4.1-5.6); Red Cell Distribution Width 14.8 % (11.5-14.0); White Blood Count 8.9 x10^3/uL (4.0-10.5)
[2022-06-25 19:37] LABS: ALBUMIN 4.1 g/dL (3.5-5.0); ALKALINE PHOSPHATASE 85 U/L (38-126); ANION GAP 8.7 MEQ/L (5-15); BLOOD UREA NITROGEN 11 mg/dL (9-20); CHLORIDE 103 mmol/L (98-107); Calcium 9.1 mg/dL (8.4-10.2); Carbon Dioxide 29 mmol/L (22-30); Creatinine 1 0.71 mg/dL (0.66-1.25); EST GLOMERULAR FILTRATION RATE > 60.0 ML/MIN; Glucose 93 mg/dL (74-106); Potassium 4.2 mmol/L (3.5-5.1); SGOT/AST 23 U/L (17-59); SGPT/ALT 27 U/L (0-50); SODIUM 136 mmol/L (137-145); Total Protein 7.5 g/dL (6.3-8.2)
[2022-06-25 20:22] VITALS: BP 158/105; PULSE 96
[2022-06-25] MEDS: ROCEPHIN 1 Gm-D5w 50 ml Bag** 1 G/50 ML IVPB IV STA ×2 (20:24→20:29)
[2022-06-25] MEDS ORDERED: ROCEPHIN 1 Gm-D5w 50 ml Bag** 0 G/0 ML IVPB IV ONE (20:24)
== END 2022-06-25 20:36 | disposition home or self-care (01) ==
LOC: ED 17:36
DX: L03.115 Cellulitis of right lower limb (principal); M79.604 Pain in right leg; R60.0 Localized edema; I10 Essential (primary) hypertension; E78.5 Hyperlipidemia, unspecified; E11.9 Type 2 diabetes mellitus without complications; Z79.84 Long term (current) use of oral hypoglycemic drugs; Z79.899 Other long term (current) drug therapy; Z72.0 Tobacco use
CPT/HCPCS: 36000; 36415; 80053; 85025; 85379; 87040; 99283; J0696

== ENCOUNTER 2022-10-30 23:37 | Emergency (ER) | payer OTHER ==
[2022-10-31] MEDS ORDERED: Norflex 60 MG/2 ML IM ONE (00:08)
[2022-10-31] MEDS ORDERED: MORPHINE SULFATE 4 MG INJ IM ONE (00:08)
[2022-10-31] MEDS ORDERED: MORPHINE SULFATE 4 MG INJ ONE (00:12)
[2022-10-31] MEDS ORDERED: Norflex 60 MG/2 ML ONE (00:12)
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
[2022-10-31 01:11] VITALS: BP 153/111; PULSE 80
--- NOTE | 2022-10-31 01:32 | XRAY ---
CLINICAL HISTORY:neck pain COMPARISON:09/11/2018 MR; TECHNIQUES:Thin axial CT of the cervical spine was performed with sagittal and coronal reconstructions without contrast; FINDINGS: Straightening of the cervical spine is noted, likely secondary to the muscle spasm. Spinal fixation screws and plate at C7-T1. Disc spacer is noted at C7-T1. Mildly reduced vertebral body height of C6. The rest of the vertebral bodies are normal in height. A few anterior and posterior osteophytes are also noted at C5, C6, and C7. No lytic or sclerotic bone lesion. The craniovertebral measures are unremarkable. Mildly reduced intervertebral disc space at C5-6 and C6-7. The rest of the intervertebral disc spaces are normal. Pre-vertebral soft tissues are within normal limits. IMPRESSION: 1-Straightening of the cervical spine likely from spinal fixation screws and plate at C7-T1. 2-Mild changes of cervical spondylosis. 3-No acute fracture or dislocation is seen. 4-When compared to the previous examination: Instrumentations are new findings. Other findings are similar. Electronically Signed by: Galdino Tran MD. 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
[2022-11-03 17:36] VITALS: O2SAT 96
== END 2022-10-31 01:55 | disposition home or self-care (01) ==
LOC: ED 23:37
DX: S16.1XXA Strain of muscle, fascia and tendon at neck level, initial encounter (principal); X50.0XXA Overexertion from strenuous movement or load, initial encounter; Y99.0 Civilian activity done for income or pay; I10 Essential (primary) hypertension; E78.5 Hyperlipidemia, unspecified; E11.9 Type 2 diabetes mellitus without complications; Z79.84 Long term (current) use of oral hypoglycemic drugs; Z79.891 Long term (current) use of opiate analgesic; Z79.899 Other long term (current) drug therapy; Z72.0 Tobacco use
CPT/HCPCS: 72125; 96372; 99283; J2270; J2360

== ENCOUNTER 2023-11-10 23:33 | Emergency (ER) | payer OTHER ==
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
[2023-11-11 00:31] VITALS: BP 166/102; PULSE 101; RESP 16; TEMP 98.1; O2SAT 98
[2023-11-11] MEDS ORDERED: SILVADENE 50 GM TP ONE (00:40)
[2023-11-11] MEDS ORDERED: Adacel Vial IM ONE (01:18)
[2023-11-11] MEDS ORDERED: TORAdol 30 mg Injection ONE (01:18)
[2023-11-11] MEDS: SILVADENE 50 GM TP ONE (01:30)
[2023-11-11] MEDS: TORAdol 30 mg Injection IM ONE (01:30)
[2023-11-11] MEDS: Adacel Vial IM ONE (01:31)
== END 2023-11-11 01:40 | disposition home or self-care (01) ==
LOC: ED 23:33
DX: T23.132A Burn of first degree of multiple left fingers (nail), not including thumb, initial encounter (principal); X15.8XXA Contact with other hot household appliances, initial encounter; Y93.E9 Activity, other interior property and clothing maintenance; I10 Essential (primary) hypertension; E78.5 Hyperlipidemia, unspecified; E11.9 Type 2 diabetes mellitus without complications; Z79.84 Long term (current) use of oral hypoglycemic drugs; Z79.899 Other long term (current) drug therapy; Z72.0 Tobacco use; Z23 Encounter for immunization
CPT/HCPCS: 90471; 90715; 96372; 99283; J1885; A9270-GY

== ENCOUNTER 2024-08-17 13:19 | Emergency (ER) | payer BC ==
[2024-08-17 13:33] VITALS: RESP 18; TEMP 97.8; O2SAT 97
[2024-08-17] MEDS: TORAdol 30 mg Injection IM ONE (13:51)
[2024-08-17] MEDS ORDERED: TORAdol 30 mg Injection ONE (13:51)
--- NOTE | 2024-08-17 14:29 | XRAY ---
Indication: Pain. Comparison: None 3 view right knee demonstrates osteopenia, mild/moderate tricompartmental degenerative changes greatest patellofemoral compartment, chunky 2 cm anterior knee joint heterotopic ossification, minimal vascular calcifications, and small nonspecific effusion. No acute bony, articular, or soft tissue abnormalities.
--- NOTE | 2024-08-17 14:33 | ERPHSYRPT ---
- History of Present Illness Time Seen by Provider: 08/17/24 13:35 Source: patient Exam Limitations: no limitations Patient Subjective Stated Complaint: pt states he fell in the shower on his rt knee Triage Nursing Assessment: pt came into the er via wheelchair; pt is axo x4; c/o rt knee pain; pt states 9/10 pain to rt knee; swelling present to rt knee; no bruising or deformity present to rt knee; skin PDW; no respiratory distress present; hypertensive Physician History: Patient is a 44-year-old male presents to our ED for evaluation of right knee pain. Patient states he slipped and fell onto his knee. Injury occurred today. Patient complains of anterior knee pain. No other injuries reported. No BHT or LOC. No neck pain. Cervical spine cleared clinically. Patient rates his pain 9 out of 10. Symptoms are moderate in intensity. Weightbearing and flexion extension reproduce pain. Patient otherwise feels well. He voices no other complaints or concerns at this time. The fall was not associated with any neuro or cardiovascular symptomology. No chest pain or shortness of breath. No nausea vomiting or diaphoresis. No associated numbness tingling or weakness. Portions of this note were created with voice recognition technology. There may be grammatical, spelling, punctuation or sound alike errors Method of Injury: fell Occurred: just prior to arrival Quality: constant Severity of Pain-Max: moderate Severity of Pain-Current: moderate Lower Extremities Pain: knee: right Modifying Factors: Improves With: movement Associated Symptoms: none Allergies/Adverse Reactions: Sulfa (Sulfonamide Antibiotics) Adverse Reaction (Intermediate, Verified 11/11/23 00:31) Vomiting Home Medications: Lisinopril/Hydrochlorothiazide [Lisinopril-Hctz 20-25 mg Tab] 1 tab PO DAILY 09/27/13 [History] Atorvastatin Calcium [Lipitor] 20 mg PO HS 12/19/13 [History] Lamotrigine 100 mg [lamICTAL 100MG TABLET] 150 mg PO BID 10/15/14 [History] Metformin HCl [Metformin HCl ER] 500 mg PO BID 10/15/14 [History] Trazodone HCl [Desyrel] 150 mg PO HS 10/15/14 [History] Gabapentin [Neurontin ] 300 mg PO TID 12/28/21 [History] Brimonidine Tartrate/Timolol [Brimonidine-Timolol 0.2%-0.5%] 2 drops OP BID 10/30/22 [History] Hx Tetanus, Diphtheria Vaccination/Date Given: Yes Hx Influenza Vaccination/Date Given: Yes Hx Pneumococcal Vaccination/Date Given: No Travel Risk - International Travel Have you traveled outside of the country in past 3 weeks: No - Emerging Infectious Disease Are you exhibiting symptoms associated with any current EIDs: No - Review of Systems Constitutional: No Symptoms, No Fever, No Chills Eyes: No Symptoms Ears, Nose, & Throat: No Symptoms Respiratory: No Symptoms, No Cough, No Dyspnea Cardiac: No Symptoms, No Chest Pain, No Edema, No Syncope Abdominal/Gastrointestinal: No Symptoms, No Abdominal Pain, No Nausea, No Vomiting, No Diarrhea Genitourinary Symptoms: No Symptoms, No Dysuria Musculoskeletal: No Symptoms, No Back Pain, No Neck Pain Skin: No Symptoms, No Rash Neurological: No Symptoms, No Dizziness, No Focal Weakness, No Sensory Changes Psychological: No Symptoms Endocrine: No Symptoms Hematologic/Lymphatic: No Symptoms Immunological/Allergic: No Symptoms All Other Systems: Reviewed and Negative - Past Medical History Pertinent Past Medical History: Yes Neurological History: Seizures ENT History: Glaucoma Cardiac History: High Cholesterol, Hypertension Respiratory History: No Pertinent History Endocrine Medical History: No Pertinent History, Diabetes Type II Musculoskeletal History: No Pertinent History GI Medical History: Crohns Disease History: No Pertinent History Psycho-Social History: Bipolar, Depression, Anxiety, Panic Disorder, Other Male Reproductive Disorders: No Pertinent History Other Medical History: . - Past Surgical History Past Surgical History: Yes Neuro Surgical History: No Pertinent History Cardiac: No Pertinent History Respiratory: No Pertinent History Gastrointestinal: No Pertinent History Genitourinary: No Pertinent History Musculoskeletal: Orthopedic Surgery Male Surgical History: Other Other Surgical History: 3 RT KNEE SURGERIES, RT THUMB SEWED BACK ON, 7 SURGERIES TO GROIN FOR I&D. neck and back surgery - Social History Smoking Status: Current every day smoker How long have you smoked: 22 Exposure to second hand smoke: No Drug Use: marijuana, methamphetamines - Social Determinants of Health Will the patient participate in the screening: Yes Do you worry about a steady place to live?: No Do you have any problems with any of the following?: No known problems In the past 12 months,have you had to go without utilities?: No Transportation Issues: No Has anyone in your support network made you feel unsafe?: No Have you or anyone in your house had to go w/o enough food: No - Nursing Vital Signs Nursing Vital Signs: Initial Vital Signs Temperature 97.8 F 08/17/24 13:26 Pulse Rate 111 H 08/17/24 13:26 Respiratory Rate 18 08/17/24 13:26 Blood Pressure 146/96 08/17/24 13:26 O2 Sat by Pulse Oximetry 97 08/17/24 13:26 Pain Scale Pain Intensity 4 - Physical Exam General Appearance: no apparent distress, alert Eyes, Ears, Nose, Throat Exam: moist mucous membranes Neck Exam: non-tender, supple Cardiovascular/Respiratory Exam: chest non-tender, normal breath sounds, regular rate/rhythm, no respiratory distress Gastrointestinal/Abdominal Exam: non-tender, guarding Back Exam: normal inspection, No vertebral tenderness Hips Exam: bilateral: non-tender, normal inspection, normal range of motion, no evidence of injury Legs Exam: bilateral leg: non-tender, normal inspection, normal range of motion, no evidence of injury Knees Exam: right knee: pain, soft tissue tenderness, other (MCL LCL PCL and ACL appears stable. Overlying soft tissue intact. Extensor mechanism intact. The involved extremities neurovascular intact distally compartments are soft cap refill less than 2 seconds.), left knee: non-tender, normal inspection, normal range of motion, no evidence of injury Ankle Exam: bilateral ankle: non-tender, normal inspection, normal range of motion, no evidence of injury Foot Exam: bilateral foot: non-tender, normal inspection, normal range of motion, no evidence of injury Neuro/Tendon Exam: normal sensation, normal motor functions Mental Status Exam: alert, oriented x 3, cooperative Skin Exam: normal color, warm, dry SpO2 Interpretation: normal SpO2: 97 O2 Delivery: Room Air - Course Nursing assessment & vital signs reviewed: Yes - Radiology Exams Knee X-ray Interpretation: Teleradiologist Report (No acute findings) Ordered Tests: Active Orders 24 hr Category Date Time Status KNEE (3 VIEWS) Stat Exams 08/17/24 13:48 Completed Medication Summary Discontinued Medications Generic Name Dose Route Start Last Admin Trade Name Freq PRN Reason Stop Dose Admin Ketorolac Tromethamine 60 mg 08/17/24 13:48 08/17/24 13:51 Ketorolac Tromethamine 30 Mg/Ml Inj IM 08/17/24 13:49 60 mg STAT ONE Administration Ketorolac Tromethamine Confirm 08/17/24 13:51 Ketorolac Tromethamine 30 Mg/Ml Inj Administered 08/17/24 13:52 Dose 60 mg .ROUTE .STK-MED ONE - Progress Progress: improved Progress Note: 44-year-old male status post fall to right knee. Physical exam shows all knee ligaments to be stable. Extensor mechanism intact. The involved extremities neurovascular tact distally compartments are soft cap refill less than 2 seconds. No acute findings on knee x-ray. Patient received Toradol for pain control. Right knee immobilizer applied. Bilateral axillary crutches provided as well. Patient referred to orthopedic clinic for follow-up. Patient neurovascular tact distally post knee immobilizer applications. A prescription for Toradol forwarded to patient's pharmacy. Patient agrees to follow-up in the orthopedic clinic as discussed. He voices no other complaints or concerns at this time. Portions of this note were created with voice recognition technology. There may be grammatical, spelling, punctuation or sound alike errors Complexity of problem addressed is moderate acute complicated. No critical care time. Complexity of data reviewed and analyzed is moderate. Test ordered test reviewed results analyzed and correlated clinically with history and physical exam. Risk of complication and or risk of morbidity/mortality of patient management is low. Vital stable. Time spent to discharge patient is approximately 15 minutes. Plan of care established for shared decision making. No social determinants of health present to impede follow-up. Portions of this note were created with voice recognition technology. There may be grammatical, spelling, punctuation or sound alike errors 08/17/24 15:38 Counseled pt/family regarding: diagnosis, need for follow-up, rad results - Departure Departure Disposition: Home Clinical Impression: Fall, Knee contusion, Knee effusion, right, Heterotopic ossification Condition: Stable Critical Care Time: No Referrals: NEREIDA SCOTT NP [Primary Care Provider] - Follow up/PCP as directed Instructions: Knee pain, Swollen Joints Additional Instructions: Discharge/Care Plan MARTHA WILKINS CATHY was seen on 08/17/24 in the Emergency Room. The patient was counseled regarding Diagnosis,Lab results, Imaging studies, need for follow up and when to return to the Emergency Room. Prescriptions given: Discharge Note I have spoken with the patient and/or caregivers. I have explained the patient's condition, diagnosis and treatment plan based on the information available to me at this time. I have answered the patient's and/or caregiver's questions and addressed any concerns. The patient and/or caregivers have as good understanding of the patient's diagnosis, condition and treatment plan as can be expected at this point. The vital signs have been stable. The patient's condition is stable and appropriate for discharge from the emergency department. The patient will pursue further outpatient evaluation with the primary care ysician or other designated or consulting physician as outlined in the discharge instructions. The patient and/or caregivers are agreeable to this plan of care and follow-up instructions have been explained in detail. The patient and/or caregivers have received these instruction. The patient/and or caregivers are aware that any significant change in condition or worsening of symptoms should prompt an immediate return to this or the closest emergency department or call 911. Forms: Work/School Release Form Prescriptions: Ketorolac Trometh 10 mg Tab [TORAdol 10 MG TABLET] 10 mg PO TID 5 Days #15 tablet Outpatient Orders: Ortho Referral Time Frame: 1 Day, Facility: [facility], Location: [facility]
[2024-08-17 14:37] VITALS: BP 113/66; PULSE 92
== END 2024-08-17 14:49 | disposition home or self-care (01) ==
LOC: ED 13:19
DX: S80.01XA Contusion of right knee, initial encounter (principal); W01.0XXA Fall on same level from slipping, tripping and stumbling without subsequent striking against object, initial encounter; Y93.E1 Activity, personal bathing and showering; Y92.002 Bathroom of unspecified non-institutional (private) residence as the place of occurrence of the external cause; M25.461 Effusion, right knee; M25.861 Other specified joint disorders, right knee; E78.5 Hyperlipidemia, unspecified; I10 Essential (primary) hypertension; E11.9 Type 2 diabetes mellitus without complications; Z79.84 Long term (current) use of oral hypoglycemic drugs; Z79.899 Other long term (current) drug therapy; Z72.0 Tobacco use
CPT/HCPCS: 73562; 96372; 99283; J1885; L1830

== ENCOUNTER 2025-01-06 14:09 | Emergency (ER) | payer BC, OTHER ==
[2025-01-06 14:32] VITALS: O2SAT 96
--- NOTE | 2025-01-06 15:22 | ERPHSYRPT ---
- History of Present Illness Source: patient Exam Limitations: no limitations Patient Subjective Stated Complaint: left sided migraine, for two days. Triage Nursing Assessment: pt arrived with migraine, affecting the left side. He stated that it has been going on for two days and he is out of his prescription migraine medications. Physician History: Patient has a headache. He has a history of migraines. This 1 is like his usual migraines only low bit more intense. He is out of his Imitrex at home.He says that usually works but he was unable to take it today. On his left side it is unilateral and throbbing. He has nausea vomiting photophobia. He says the pain is moderate to severe. Exacerbating factors make it worse. Nothing really relieves it except closing his eyes and lying down and it only helps partially.It is no different than his usual migraines. Allergies/Adverse Reactions: Sulfa (Sulfonamide Antibiotics) Adverse Reaction (Intermediate, Verified 11/11/23 00:31) Vomiting Home Medications: Lamotrigine 100 mg [lamICTAL 100MG TABLET] 150 mg PO BID 10/15/14 [History] Metformin HCl [Metformin HCl ER] 500 mg PO BID 10/15/14 [History] Apixaban [Eliquis] 5 mg PO BID 11/21/24 [History] Aspirin EC 81 mg [Ecotrin 81 mg] 81 mg PO DAILY 11/21/24 [History] Isosorbide Mononitrate 30 mg [Imdur 30 MG] 30 mg PO DAILY 11/21/24 [History] Lisinopril 20 mg [Zestril 20 MG] 20 mg PO DAILY 11/21/24 [History] Metoprolol Tartrate 50 mg [Lopressor 50 MG] 25 mg PO BID 11/21/24 [History] Porcupine-3/Dha/Epa/Fish Oil [Fish Oil 1,000 mg Softgel] 1 cap PO DAILY 11/21/24 [History] Rosuvastatin Calcium [Crestor] 40 mg PO HS 11/21/24 [History] Semaglutide [Ozempic] 0.5 mg SQ WEEKLY 11/21/24 [History] hydroCHLOROthiazide [Hydrochlorothiazide] 25 mg PO DAILY 11/21/24 [History] Hx Tetanus, Diphtheria Vaccination/Date Given: Yes Hx Influenza Vaccination/Date Given: Yes Hx Pneumococcal Vaccination/Date Given: Yes Immunizations Up to Date: Yes Travel Risk - International Travel Have you traveled outside of the country in past 3 weeks: No - Emerging Infectious Disease Are you exhibiting symptoms associated with any current EIDs: No - Review of Systems Constitutional: No Symptoms Eyes: No Symptoms Respiratory: No Symptoms Cardiac: No Symptoms Abdominal/Gastrointestinal: No Symptoms Musculoskeletal: No Symptoms Skin: No Symptoms Neurological: Headache Psychological: No Symptoms All Other Systems: Reviewed and Negative - Past Medical History Pertinent Past Medical History: Yes Neurological History: Seizures Cardiac History: Arrhythmia, High Cholesterol, Hypertension Respiratory History: No Pertinent History Endocrine Medical History: No Pertinent History, Diabetes Type II Musculoskeletal History: No Pertinent History GI Medical History: Crohns Disease History: No Pertinent History Psycho-Social History: Bipolar, Depression, Anxiety, Panic Disorder, Other Male Reproductive Disorders: No Pertinent History Other Medical History: A- Fib . - Past Surgical History Past Surgical History: Yes Neuro Surgical History: No Pertinent History Cardiac: No Pertinent History Respiratory: No Pertinent History Gastrointestinal: No Pertinent History Genitourinary: No Pertinent History Musculoskeletal: Orthopedic Surgery Male Surgical History: Other Other Surgical History: 3 RT KNEE SURGERIES, RT THUMB SEWED BACK ON, 7 SURGERIES TO GROIN FOR I&D. neck and back surgery c4,5,L2 fusion - Social History Smoking Status: Current every day smoker How long have you smoked: 22 Exposure to second hand smoke: No Drug Use: none - Social Determinants of Health Will the patient participate in the screening: Yes Do you worry about a steady place to live?: No Do you have any problems with any of the following?: No known problems In the past 12 months,have you had to go without utilities?: No Transportation Issues: No Has anyone in your support network made you feel unsafe?: No Have you or anyone in your house had to go w/o enough food: No - Nursing Vital Signs Nursing Vital Signs: Initial Vital Signs Temperature 97.1 F 01/06/25 14:18 Pulse Rate 79 01/06/25 14:18 Respiratory Rate 18 01/06/25 14:18 Blood Pressure 127/88 01/06/25 14:18 O2 Sat by Pulse Oximetry 96 01/06/25 14:18 Pain Scale Pain Intensity 10 - Physical Exam General Appearance: no apparent distress Eye Exam: PERRL/EOMI, eyes nml inspection Ears, Nose, Throat Exam: normal ENT inspection Neck Exam: normal inspection Respiratory Exam: normal breath sounds Mental Status Exam: alert, oriented x 3, cooperative thermostat maker Exam: normal hearing, normal speech, PERRL, abnormal eye position Coordination/Gait Exam: normal finger to nose, normal gait, normal cerebellar function Motor/Sensory Exam: no motor deficit, no sensory deficit Skin Exam: normal color, warm, dry SpO2: 96 - Course Nursing assessment & vital signs reviewed: Yes Ordered Tests: Medication Summary Discontinued Medications Generic Name Dose Route Start Last Admin Trade Name Billyq PRN Reason Stop Dose Admin Prochlorperazine Edisylate 10 mg 01/06/25 15:05 01/06/25 15:48 Prochlorperazine Edisylate 10 Mg/2 Ml Vial IV 01/06/25 15:06 10 mg STAT ONE Administration Prochlorperazine Edisylate Confirm 01/06/25 15:41 Prochlorperazine Edisylate 10 Mg/2 Ml Vial Administered 01/06/25 15:42 Dose 10 mg .ROUTE .STK-MED ONE Sumatriptan Succinate 6 mg 01/06/25 15:05 01/06/25 15:48 Sumatriptan Succinate 6 Mg/0.5 Ml Vial SQ 01/06/25 15:06 6 mg STAT STA Administration Sumatriptan Succinate Confirm 01/06/25 15:41 Sumatriptan Succinate 6 Mg/0.5 Ml Vial Administered 01/06/25 15:42 Dose 6 mg SQ .STK-MED ONE - Progress Progress: improved Air Movement: good Progress Note: 01/06/Patient stable throughout stay. He had a pretty classic migraine picture. I am going to give him some Imitrex subcu as well as some Compazine in the IV. This was done. Patient got good relief. He is asking to be discharged.25 16:24 - Departure Departure Disposition: Home Clinical Impression: Migraine Condition: Stable Critical Care Time: No Referrals: NEREIDA SCOTT NP [Primary Care Provider, [facility]] - Follow up/PCP as directed Instructions: Headache, Adult (DC)
[2025-01-06] MEDS ORDERED: Imitrex 6 MG/0.5 ML SQ ONE (15:41)
[2025-01-06] MEDS ORDERED: Compazine 10 MG/2 ML ONE (15:41)
[2025-01-06] MEDS: Imitrex 6 MG/0.5 ML SQ STA (15:48)
[2025-01-06] MEDS: Compazine 10 MG/2 ML IV ONE (15:48)
[2025-01-06 16:08] VITALS: BP 112/80; PULSE 82; RESP 22; TEMP 96.7
== END 2025-01-06 16:40 | disposition home or self-care (01) ==
LOC: ED 14:09
DX: G43.909 Migraine, unspecified, not intractable, without status migrainosus (principal); R11.2 Nausea with vomiting, unspecified; I10 Essential (primary) hypertension; E11.9 Type 2 diabetes mellitus without complications; Z79.01 Long term (current) use of anticoagulants; Z79.84 Long term (current) use of oral hypoglycemic drugs; Z79.85 Long-term (current) use of injectable non-insulin antidiabetic drugs; Z79.899 Other long term (current) drug therapy; Z72.0 Tobacco use